=== PATIENT | female | born 1950 | race Caucasian/White ===

== ENCOUNTER 2018-10-06 07:15 | Observation (INO) | payer MEDICARE, BC ==
[2018-10-06 07:43] LABS: #Eosinphils 0.2 thou/uL (0.0-0.7); #Lymphocytes 0.8 thou/uL (1.20-3.40); #Monocytes 0.6 thou/uL (0.11-0.59); %Basophils 0.2 % (0.0-1.0); %Eosinophils 2.6 % (0.0-10.0); %Lymphocytes 9.6 % (21.0-51.0); %Monocytes 7.3 % (0.0-10.0); %Neutrophils 80.3 % (42.0-75.0); Hemoglobin 8.5 g/dL (12.0-16.0); Mean Corpuscular HGB CONC 33.5 g/dL (32.0-36.0); Mean Corpuscular Hemoglobin 31.8 pg (27.0-31.0); Mean Platelet Volume 7.7 fL (7.4-10.4); Platelet Count 168 thou/uL (130-400); RBC Distribution Width 11.7 % (11.5-14.5); Red Blood Cell (RBC) Count 2.66 mill/uL (4.20-5.40); White Blood Cell (WBC) Count 8.7 thou/uL (4.8-10.8)
[2018-10-06 08:02] LABS: ALT (SGPT) 20 U/L (8-55); AST (SGOT) 29 U/L (5-34); Albumin 3.3 g/dL (3.4-4.8); Alkaline Phosphatase 77 U/L (40-150); Anion Gap 11 mmol/L (10-20); BUN (Urea Nitrogen) 15 mg/dL (9.8-20.1); Bilirubin, Total 0.7 mg/dL (0.2-1.2); Calc. Creatinine Clearance 0 mL/min (70-130); Calcium 9.2 mg/dL (7.8-10.44); Carbon Dioxide 26 mmol/L (23-31); Chloride 103 mmol/L (98-107); Estimated GFR-MDRD 56; Globulin 2.5 g/dL (2.4-3.5); Glucose 117 mg/dL (80-115); Potassium 4.1 mmol/L (3.5-5.1); Protein, Total 5.8 g/dL (6.0-8.3); Sodium 136 mmol/L (136-145)
--- NOTE | 2018-10-06 08:14 | RAD ---
PORTABLE CHEST: HISTORY: Mental status change. FINDINGS: Lungs are clear. Heart and mediastinum appear normal. Vasculature normal. IMPRESSION: No acute abnormality. POS: OFF
--- NOTE | 2018-10-06 08:41 | CT ---
CT HEAD WITHOUT CONTRAST: Multiple axial tomograms are obtained through the head without IV enhancement. INDICATION: Mental status change. COMPARISON: No comparison. FINDINGS: Mild cortical volume loss. Moderate chronic ischemic white matter change. No hemorrhage or mass. N o evidence of acute cortical infarct. Deep lacunar infarcts may not be apparent due to the chronic i schemic white matter change. IMPRESSION: There are chronic changes as described. No acute process identified. Consider MRI to further evalua te. POS: OFF
[2018-10-06 08:46] LABS: Bilirubin Small (Negative); Blood, Urine Negative (Negative); Clarity CLOUDY (Clear); Glucose, Urine (Dipstick) Negative (Negative); Leukocyte Small (Negative); Nitrite Negative (Negative); Protein, Urine (Dipstick) Negative (Neg-Trace); Specific Gravity, Urine 1.026 (1.002-1.036); pH, Urine 5.5 (5.0-9.0)
[2018-10-06 08:48] LABS: Bacteria/HPF None Seen HPF (None Seen); RBC/HPF 0-3 HPF (0-3)
[2018-10-06 09:00] LABS: Pathc Cast-AUWi Flag 19.58 (0-2.49); Yeast-AUWi Flag 29.7 (0-25.0)
[2018-10-06 09:11] LABS: Yeast-All Forms Rare HPF (None Seen)
[2018-10-06 09:12] LABS: Hyaline Casts/LPF 7-10 HYALINE CAST LPF (0-3 Hyaline); Other Casts/LPF None Seen LPF (0-3 Hyaline)
[2018-10-06] MEDS ORDERED: traMADol HCl 50 MG TAB PO PRN (10:03)
[2018-10-06] MEDS ORDERED: Lorazepam 2 MG/ML VIAL ONE (10:18)
[2018-10-06 11:55] VITALS: BMI 27.3
[2018-10-06] MEDS ORDERED: ALPRAZolam 0.25 MG TAB PO PRN (15:04)
[2018-10-06] MEDS ORDERED: Lorazepam 2 MG/ML VIAL SLOW IVP PRN (15:05)
--- NOTE | 2018-10-06 15:35 | HP ---
CHIEF COMPLAINT: Altered mental status. HISTORY OF PRESENT ILLNESS: This patient is a 68-year-old female, who is postop day 4 from total right knee replacement in [facility] by Dr. Dc. The patient's reports that she was having some mild difficulty with word finding and such prior to her knee surgery, but generally was quite functional. Subsequent to the knee surgery, she has had more confusion and some visual hallucinations, constantly picking at things and seeing bugs and alligators and the people who are not there and frequently talking to them. He reports that they told her it was likely a complication of the anesthesia initially. In the postop day 2, they actually gave her something at night to make her sleep, but she did not sleep the night of the surgery. He said the following morning, she woke up a little better but not back to baseline. As the day progressed, she continued to revert back to full-blown delirium and hallucinations. He states that at times she will get little bit aggravated with him and he is concerned about her potential rehab. He reports that last night she did not sleep at all that she was up in talking much of the night. She took all the sheets off the bed, put them back on, then took them back off again. He is challenged at home because they are relatively new to the area and they are only the two of them at home. He is having a difficult time caring for her, given her postop knee status and her mental state presently. He is unaware of any fevers or chills. He says she has actually been eating well since the surgery. In reviewing her medication list, it appears that the only new medicine since surgery that she has been taking with regularity are the gabapentin, Plavix, and Xarelto. She was also given tramadol, which she gave her last night for the first time and tizanidine, which she had not given her. PAST MEDICAL HISTORY: Notable for hypertension, hyperlipidemia, hypothyroidism, coronary artery disease, degenerative joint disease, and depression. PAST SURGICAL HISTORY: Cardiac stents x2, history of hysterectomy, and the recent total right knee replacement. FAMILY HISTORY: Reviewed and noncontributory. SOCIAL HISTORY: The patient denies the use of alcohol, drugs, or tobacco. She is . Her is present and assist with the history today. She is full code. He is her surrogate decision maker. They do have directives to physicians completed but not with them at the moment. ALLERGIES: CODEINE AND MACROBID. CURRENT MEDICATIONS: 1. Gabapentin 100 mg 2 tablets t.i.d. 2. Xarelto 10 mg daily. 3. Tizanidine 2 mg t.i.d. p.r.n. 4. Plavix 75 daily. 5. Aspirin 81 mg daily. 6. Atorvastatin 80 mg daily. 7. Levothyroxine 50 mcg daily. 8. Metoprolol 25 mg p.o. b.i.d. PHYSICAL EXAMINATION: VITAL SIGNS: Blood pressure 110/47, pulse 67, respirations 18, and O2 saturation 95% on room air. GENERAL APPEARANCE: Age-appropriate female, in no distress. She is awake, alert, pleasant, and cooperative. She is constantly picking at the things attached to her. She removed the line to her blood pressure cuff and removed the cuff itself. She has removed her pulse ox monitor. She does try to introduce me to her , who is behind her when actually he is sitting in the chair next to her. She also is speaking about things that are nonsensical much of the time. HEENT: PERRL. No OP lesions. NECK: Supple and symmetric. HEART: Regular rate and rhythm without murmurs, gallops, or rubs. LUNGS: Clear to auscultation bilaterally with good chest wall expansion and air exchange. ABDOMEN: Soft, nontender, and nondistended. Positive bowel sounds. No masses. No organomegaly. EXTREMITIES: The right knee has a postop dressing with minimal blood spotting. There is a drain connected to a small suction device. There are compression stockings on both lower extremities. There is no significant cyanosis, clubbing, or edema noted. NEUROLOGIC: The patient is getting up and ambulating with the assistance of her . She is moving all extremities spontaneously and the cognitive impairments noted above seem to be the only major deficits. LABORATORY DATA: White count is 8.7, hemoglobin 8.5, and platelets 168. Sodium 136, potassium 4.1, chloride 103, CO2 is 26, BUN 15, creatinine 0.99, glucose 117, lactic acid 1.1, calcium 9.2, AST 29, ALT 20, and albumin 3.3. Urinalysis; trace ketones, small bilirubin, small leukocyte esterase, 4 to 6 white cells, 0 to 3 red cells, and 11 to 20 squamous epithelial cells. IMAGING DATA: Brain CT shows some slightly advanced white matter changes beyond what would typically be expected for the age. Chest x-ray is clear. IMPRESSION AND PLAN: 1. 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 Other etiologies include adverse reaction to the gabapentin that will be discontinued. We will keep the patient in observation. Consult Neurology for another opinion. 2. Postoperative total right knee replacement. Continue with Xarelto, Plavix, aspirin, and tramadol p.r.n. 3. Hypothyroidism. Continue with her normal levothyroxine dose. 4. History of coronary artery disease. Continue Plavix, aspirin, and metoprolol. 5. Hyperlipidemia. Continue atorvastatin. 6. Disposition. The patient may be a candidate for rehab given her postop status and her mental status. We will consult Case Management to get a rehab screen. Job ID: [id number]
[2018-10-06 17:34] LABS: Folate (Folic Acid) 11.9 ng/mL (7.0-31.4)
--- NOTE | 2018-10-06 19:42 | CON ---
DATE OF CONSULTATION: 10/06/2018 CONSULTING PHYSICIAN: Hospitalist Service. IMPRESSION: 1. Acute encephalopathy with prodromal, minimal symptoms of early dementia. 2. Possible cellulitis of the right leg. PLAN: 1. Continue Seroquel 25 mg at night as you have ordered. 2. Further lab work as ordered. 3. Potential need for antibiotics to address the right leg cellulitis. HISTORY OF PRESENT ILLNESS: Ms. Ivy is a 68-year-old white female, who was brought in due to confusion. Her reports that she had surgery on Sunday to have a knee replacement done down in [place]. Postoperatively, she was confused and was held over until . She seemed to be clearer and they decided to take her on home. She did reasonably well until later in the evening, where she became agitated and was having some hallucinations. She slept Sunday night and again being reasonably lucid on Sunday as the day progressed, the situation worsened. He decided to bring her in for evaluation. She had a CT scan of the brain done, which showed some age-related microvascular disease. Her lab work including CBC, routine chemistry, and urine were unremarkable. She did not sleep at all last night. She has had trouble answering questions appropriately such as edwin grandchildren she has. She is without any complaints of any focal weakness, nausea, vomiting, or headache. PAST MEDICAL HISTORY: Otherwise, I believe atrial fibrillation and degenerative joint disease. MEDICATIONS: Medication list was reviewed. She had been on gabapentin prior to admission, but this was discontinued. SOCIAL HISTORY: No tobacco or alcohol use. FAMILY HISTORY: Noncontributory. REVIEW OF SYSTEMS: A 10-system review of systems is otherwise unremarkable. PHYSICAL EXAMINATION: GENERAL: She is a reasonably well-nourished elderly woman, in no acute distress. VITAL SIGNS: Have been stable. She is afebrile. HEENT: Pupils are equal and reactive. Conjunctivae clear. Oropharynx clear. NECK: Supple. No lymphadenopathy. EXTREMITIES: There is a large area of warmth and redness involving the medial right thigh and a freshly healing incision over the right knee. There was no cyanosis distally. No edema was present. NEUROLOGIC: She was awake and cooperative. Her speech was fluent and clear. She could follow commands reasonably well. She had no evidence of dysarthria. There was no facial asymmetry. Strength testing showed good yarder puncher strength bilaterally. There was no asterixis or tremor present. She had good antigravity strength in all four limbs. Sensation was intact to touch. Plantar responses were downgoing. Gait was not tested. SUMMARY: An elderly lady with postoperative delirium that waxes and wanes with sundowning type pattern. I agree with her choice of medication for the evening time and will rule out some other metabolic issues. Job ID: [id number]
[2018-10-06] MEDS: Metoprolol Tartrate 25 MG TAB PO SCH (20:12)
[2018-10-06] MEDS ORDERED: Atorvastatin Calcium 40 MG TAB PO SCH (21:00)
[2018-10-07] MEDS ORDERED: Levothyroxine Sodium 50 MCG TAB PO SCH (06:00)
[2018-10-07] MEDS: Acetaminophen 325 MG TAB PO PRN ×3 (08:13→18:27)
[2018-10-07] MEDS: Metoprolol Tartrate 25 MG TAB PO SCH (08:14)
[2018-10-07] MEDS ORDERED: Clopidogrel Bisulfate 75 MG TAB PO SCH (09:00)
[2018-10-07] MEDS ORDERED: Rivaroxaban 10 MG TAB PO SCH (09:00)
[2018-10-07] MEDS ORDERED: Aspirin 81 mg Enteric Coated Tablet PO SCH (09:00)
[2018-10-07] MEDS ORDERED: Chloraseptic Spray 180 ml Bottle PO PRN (10:09)
[2018-10-07] MEDS ORDERED: Doxycycline 100 MG CAP PO SCH ×2 (10:15→21:00)
--- NOTE | 2018-10-07 11:46 | ULT ---
ULTRASOUND DOPPLER DUPLEX VENOUS BILATERAL LOWER EXTREMITIES: DATE: 10/07/2018 HISTORY: 68-year-old female with bilateral lower extremity edema and pain TECHNIQUE: Grayscale, color-flow, and spectral analysis, of major veins of bilateral lower extremities. FINDINGS: There is demonstration of blood flow with normal compressibility, of the bilateral common femoral, pr ofunda femoral, greater saphenous, femoral, and posterior tibial, veins. The right popliteal vein is not visible because of obscuration by overlying bandages. The left popliteal vein is normal. IMPRESSION: 1. Right popliteal vein not visualized due to overlying bandages. 2. Otherwise Negative. No deep venous thrombosis identified in the rest of the bilateral lower extrem ities.
[2018-10-07] MEDS ORDERED: Ibuprofen 200 MG TAB PO SCH (14:30)
--- NOTE | 2018-10-07 16:12 | PDOC.PN ---
- Subjective Encounter Start Date: 10/07/18 Encounter Start Time: 16:10 Subjective: feels much better.care discussed w family at bedside -: they report that her mentation is much clear today - Objective Resuscitation Status - Order Detail: 10/06/18 09:56 Resuscitation Status Routine Resuscitation Status: FULL: Full Resuscitation MAR Reviewed: Yes Vital Signs & Weight: Vital Signs (12 hours) Temp Pulse Resp BP Pulse Ox 10/07/18 12:39 98.4 F 72 14 126/75 99 10/07/18 08:23 98.5 F 72 18 136/71 99 10/07/18 04:24 97.8 F 62 18 118/72 93 L Weight Weight 149 lb 14.629 oz I&O: 10/06/18 10/07/18 10/08/18 06:59 06:59 06:59 Intake Total 640 Output Total 1650 Balance -1010 Result Diagrams: 10/06/18 07:34 10/06/18 07:34 Additional Labs: Microbiology 10/06/18 07:49 Venous blood - Right Arm Blood Culture - Preliminary Specimen has been received and culture in progress. No Growth to date. 10/06/18 07:49 Venous blood - Left Arm Blood Culture - Preliminary Specimen has been received and culture in progress. No Growth to date. Laboratory Tests 10/06/18 10/06/18 10/06/18 07:42 15:48 15:48 Lactic Acid 1.1 Ammonia Vitamin B12 658 Folate 11.90 Free T4 Cortisol 8.00 10/06/18 10/06/18 15:48 15:48 Lactic Acid Ammonia 22 Vitamin B12 Folate Free T4 1.03 Cortisol Phys Exam - Physical Examination Constitutional: NAD mild confusion noted HEENT: PERRLA, moist MMs, sclera anicteric, oral pharynx no lesions Neck: no nodes, no JVD, supple, full ROM Respiratory: no wheezing, no rales, no rhonchi, clear to auscultation bilateral Cardiovascular: RRR, no significant murmur, no rub Gastrointestinal: soft, non-tender, no distention, positive bowel sounds Musculoskeletal: no edema, pulses present Neurological: non-focal, normal sensation, moves all 4 limbs Psychiatric: normal affect, A&O x 3 Skin: no rash Dx/Plan (1) Metabolic encephalopathy Code(s): G93.41 - METABOLIC ENCEPHALOPATHY Status: Acute Comment: improving.likley due to narcotics and muscle relaxants with cellulitis (2) Cellulitis of right leg Code(s): L03.115 - CELLULITIS OF RIGHT LOWER LIMB Status: Acute Comment: start PO ABx. (3) S/P total knee replacement Code(s): Z96.659 - PRESENCE OF UNSPECIFIED ARTIFICIAL KNEE JOINT Status: Acute Qualifiers: Laterality: right Qualified Code(s): Z96.651 - Presence of right artificial knee joint (4) CAD (coronary artery disease) Code(s): I25.10 - ATHSCL HEART DISEASE OF [place] CORONARY ARTERY W/O ANG PCTRS Status: Chronic Comment: stable.cont ASA,statin.Plavix on hold for 7 days as pt on Xarelto for DVT prophylaxis post-op (5) HTN (hypertension) Code(s): I10 - ESSENTIAL (PRIMARY) HYPERTENSION Status: Chronic Comment: stable. cont amlodipine (6) HLD (hyperlipidemia) Code(s): E78.5 - HYPERLIPIDEMIA, UNSPECIFIED Status: Chronic Comment: cont statin (7) Hypothyroid Code(s): E03.9 - HYPOTHYROIDISM, UNSPECIFIED Status: Chronic - Plan plan discussed w/ family, DVT proph w/SCDs cont xarelto for 7 days for DVT prophylaxis -: Start PO doxycycline for possible R leg cellulitis -: Doppler negative for DVT.low risk w OAC -: Rehab eval.Ok to DC if accpeted today -: am labs if still in house tomorrow.all WNL so far * . Review of Systems - Review of Systems Constitutional: weakness, malaise. negative: fever, chills, sweats, other Respiratory: negative: Cough, Dry, Shortness of Breath, Hemoptysis, SOB with Excertion, Pleuritic Pain, Sputum, Wheezing Cardiovascular: negative: chest pain, palpitations, orthopnea, paroxysmal nocturnal dyspnea, edema, light headedness, other Gastrointestinal: negative: Nausea, Vomiting, Abdominal Pain, Diarrhea, Constipation, Melena, Hematochezia, Other Genitourinary: negative: Dysuria, Frequency, Incontinence, Hematuria, Retention , Other Musculoskeletal: negative: Neck Pain, Shoulder Pain, Arm Pain, Back Pain, Hand Pain, Leg Pain, Foot Pain, Other - Medications/Allergies Allergies/Adverse Reactions: Allergies Allergy/AdvReac Type Severity Reaction Status Date / Time codeine Allergy Verified 10/06/18 10:37 nitrofurantoin Allergy Verified 10/06/18 10:37 [From Macrobid] Medications: Current Medications Acetaminophen (Tylenol) 650 mg PO Q4H PRN PRN Reason: Headache/Fever/Mild Pain (1-3) Last Admin: 10/07/18 12:06 Dose: 650 mg Alprazolam (Xanax) 0.25 mg PO TIDPRN PRN PRN Reason: Anxiety Last Admin: 10/06/18 15:12 Dose: 0.25 mg Aspirin (Ecotrin) 81 mg PO DAILY [facility] Last Admin: 10/07/18 08:14 Dose: 81 mg Atorvastatin Calcium (Lipitor) 80 mg PO HS [facility] Last Admin: 10/06/18 20:12 Dose: 80 mg Clopidogrel Bisulfate (Plavix) 75 mg PO DAILY [facility] Last Admin: 10/07/18 08:13 Dose: 75 mg Doxycycline Hyclate (Vibramycin) 100 mg PO BID [facility] Ibuprofen (Motrin) 200 mg PO NOW [facility] Stop: 10/07/18 16:30 Levothyroxine Sodium (Synthroid) 50 mcg PO 0600 [facility] Last Admin: 10/07/18 06:23 Dose: 50 mcg Lorazepam (Ativan) 0.5 mg SLOW IVP Q4H PRN PRN Reason: Anxiety/Agitation Last Admin: 10/06/18 17:12 Dose: 0.5 mg Metoprolol Tartrate (Lopressor) 25 mg PO BID [facility] Last Admin: 10/07/18 08:14 Dose: 25 mg Phenol (Chloraseptic [place] 180 Ml Bot) 0 ml PO BIDPRN PRN PRN Reason: Sore Throat Last Admin: 10/07/18 13:21 Dose: 1 spr Quetiapine Fumarate (Seroquel) 25 mg PO HS [facility] Last Admin: 10/06/18 20:12 Dose: 25 mg Rivaroxaban (Xarelto) 10 mg PO DAILY [facility] Last Admin: 10/07/18 08:13 Dose: 10 mg Tramadol HCl (Ultram) 50 mg PO Q6H PRN PRN Reason: Moderate to Severe Pain (6-10)
[2018-10-07 16:54] VITALS: BP 117/64; TEMP 98.2
--- NOTE | 2018-10-09 04:56 | DIS ---
DATE OF ADMISSION: 10/06/2018 DATE OF DISCHARGE: 10/07/2018 CONDITION: At the time of discharge, stable and improved. DISCHARGE DISPOSITION: Inpatient rehab. PRIMARY CARE PHYSICIAN: Chester Collins MD. DISCHARGE DIAGNOSES: 1. Acute metabolic encephalopathy, improved. 2. Right leg cellulitis. 3. Recent right total knee replacement. 4. Coronary artery disease. 5. Hypertension. 6. Dyslipidemia. 7. Hypothyroidism. DISCHARGE MEDICATIONS: Doxycycline 100 mg p.o. b.i.d. for 7 days, Florastor 250 mg p.o. daily for 10 days. Resume home medications. No changes were made. Please see full list dictated by Dr. Shin Felix in his H and P dated 10/06/2018. Please note that the patient is on Xarelto 10 mg daily for a total duration of 7 days postop. She will resume her Plavix 75 mg daily after she is done with her Xarelto. Plavix and Xarelto should not be given together. PROCEDURES DONE IN THE HOSPITAL: 1. CT scan of the brain upon presentation, which did not show any acute changes. 2. Chest x-ray, which did not have any evidence of pneumonia. 3. Lower extremity Doppler ultrasound, which is negative for any DVT, but right-sided popliteal vein was not visualized properly due to overlying bandages. HISTORY OF PRESENTING ILLNESS: Ms. Ivy is a 68-year-old female, with past medical history of coronary artery disease, hypertension, dyslipidemia, who recently underwent right total knee replacement at [facility] by Dr. Mendosa. She was postop day #4 on 10/06/2018. She was brought into the hospital by her for complaints of confusion and some visual hallucination, which was worsening. She was discharged home from the hospital. He has given her 1 dose of tizanidine and 1 dose of tramadol. She was also put on Xarelto instead of Plavix for postop DVT prophylaxis for a total of 7 days. Upon presentation, she was hemodynamically stable and her metabolic panel was unremarkable. She was admitted for observation status. CT scan of the brain done in the emergency room was negative. Her gabapentin was held and Neurology was consulted. Please see admission history and physical dictated by Dr. Shin Felix on 10/06/2018. HOSPITAL COURSE: The patient had gradual improvement in her mentation and was awake, alert, and oriented at least x2 with intermittent periods of slow mentation. Neurology saw the patient and they thought that she might have right lower leg cellulitis. Upon my evaluation, the patient had a small patch of right anterior machuca erythema with some warmth. She does have a bruise in the right thigh, and some redness surrounding the incision, but the incision itself was dry and without any discharge. She was started on oral doxycycline for possible right leg cellulitis. She was continued on her Seroquel at night as per Neurology recommendations. Other than that all of her workup was rather unremarkable. She was evaluated for rehab and was approved and will be discharged. Her blood cultures have been negative till the date of discharge. Discharge plan was discussed with the patient, her , and her daughter and they verbalized understanding. Job ID: [id number]
== END 2018-10-07 19:45 ==
LOC: ERS 07:15 → T4-A 09:30
PROVIDERS: ADMIT Internal Medicine; ATTEND Internal Medicine
DX: G93.41 Metabolic encephalopathy (principal); L03.115 Cellulitis of right lower limb; I25.10 Atherosclerotic heart disease of native coronary artery without angina pectoris; I10 Essential (primary) hypertension; E78.5 Hyperlipidemia, unspecified; E03.9 Hypothyroidism, unspecified; F32.9 Major depressive disorder, single episode, unspecified; Z79.01 Long term (current) use of anticoagulants; Z79.02 Long term (current) use of antithrombotics/antiplatelets; Z79.82 Long term (current) use of aspirin; Z79.899 Other long term (current) drug therapy; Z88.1 Allergy status to other antibiotic agents; Z88.5 Allergy status to narcotic agent; Z95.5 Presence of coronary angioplasty implant and graft; Z96.651 Presence of right artificial knee joint
CPT/HCPCS: 51701; 70450; 71045; 80053; 82140; 82533; 82607; 82746; 83605; 84439; 85025; 87040; 93970; 96361; 96374; 96376; 97116; 97139 ×2; 99285; G0378 ×2; 36415; 81003; 81015; A4353; J2060

== ENCOUNTER 2019-04-01 13:16 | Observation (INO) | payer MEDICARE, BC ==
[2019-04-01 15:13] LABS: Troponin I Less than 0.010 ng/mL (< 0.028)
[2019-04-01] MEDS ORDERED: Acetaminophen 325 MG TAB PO PRN (16:40)
[2019-04-01] MEDS ORDERED: Ondansetron ODT 4 MG TAB SL PRN (16:40)
[2019-04-01] MEDS ORDERED: Ondansetron PF 4 MG/2 ML Vial IVP PRN (16:40)
[2019-04-01 17:32] VITALS: BMI 23.1
[2019-04-01] MEDS ORDERED: Nitroglycerin 0.4 MG TAB (25 Tab Bottle) PO PRN (17:32)
[2019-04-01 18:10] LABS: Troponin I Less than 0.010 ng/mL (< 0.028)
--- NOTE | 2019-04-02 08:03 | HP ---
PRIMARY CARE PHYSICIAN: Chester Collins MD OCCUPATIONAL THERAPIST'S ASSISTANT: Alma Walton MD CHIEF COMPLAINT: Chest pain, transferred from [facility]. HISTORY OF PRESENT ILLNESS: This is a 69-year-old female with past medical history of coronary artery disease, status post stenting x2 in February 2012, compliant on aspirin 81 mg and Plavix 75 mg and CAD prudent medications, hypertension, hypothyroidism, dyslipidemia, who presented to [facility] after awakening at 8 a.m. with complaints of chest pain and indigestion related symptoms. The patient reports eating tacos the night prior and awakening at 8 a.m. with constant belching as well as pressure-like discomfort in the middle of her chest that lasted for 1 hour duration, that was not relieved with 2 antacid tablets and felt similar to her prior MD from 7 years prior. She denies any associated complaints of dyspnea, neck pain, jaw pain, back pain, shoulder pain, arm pain, numbness, weakness, tingling, or diaphoresis. In the ER, she was noted to have a blood pressure of 200 systolic. Initial EKG and troponin did not reveal any ischemic or infarction changes. The patient was administered multiple aspirin tablets and nitroglycerin topical ointment, and transferred to [facility] ER for further evaluation. Repeat blood pressures have improved to 150s to 170s systolic. The patient was admitted for further observation. At bedside, her current chest discomfort is nil and have rated 0/10 in severity. The patient is an extremely poor historian despite multiple attempts to obtain any history from her. She is not clear on when her last left heart cardiac catheterization or cardiac risk stratification was. She has an upcoming appointment with coat examiner in the next couple of weeks. She is compliant with all home medications including antacid tablets. She denies any lower extremity edema or dyspnea. She reiterates currently that she feels well. PAST MEDICAL HISTORY: Coronary artery disease, status post stenting x2 in February 2012 to mid RCA and distal RCA, compliant on dual antiplatelet therapy with a repeat left heart catheterization in 2013 in [place], [place]. The patient also has a history of hypertension, dyslipidemia, hypothyroidism, ureteral stricture, and depression. PAST SURGICAL HISTORY: Coronary stenting x2 in 2011, repeat heart catheterization in 2013, right knee replacement, shoulder surgeries, knee surgeries, left wrist surgery, bilateral cataract surgery, hysterectomy. SOCIAL HISTORY: The patient admits to prior nicotine dependence and subsequently vaping, quitting in July 2018. She admits to social alcohol intake. ALLERGIES: LISTED TO CODEINE AND NITROFURANTOIN. REVIEW OF SYSTEMS: Pertinent positives are noted and as per HPI. Remainder of review of systems is negative. HOME MEDICATIONS: Will be reviewed as per admission medication reconciliation. FAMILY HISTORY: The patient notes that her father from cancer. She denies any premature family history of CAD. PHYSICAL EXAMINATION: VITAL SIGNS: Blood pressure ranges from 159/60 to 171/70, pulse 56, respirations 16, T-max 98.2, oxygen saturation 98%. GENERAL APPEARANCE: This is an elderly thin female, who is awake, alert, oriented, lucid, not in any distress. HEENT: Eyes, pupils are equally round and reactive. Extraocular muscles are intact. No scleral icterus or conjunctival pallor. Normocephalic and atraumatic. No facial asymmetry. Mucous membranes are moist. CARDIOVASCULAR SYSTEM: S1, S2, regular rate and rhythm. No harsh murmurs. No appreciable chest wall tenderness. LUNGS: Bilateral equal air entry, clear to auscultation. Symmetrical chest expansion. No wheezing or rales. ABDOMEN: Soft, nontender, and nondistended. No peritoneal signs appreciated. SKIN: Warm to touch without rashes or abrasion. LABORATORY VALUES: CBC reveals a white blood cell count of 7.0, H and H 13.4/ 43.8, platelets 205. Chemistries; CMP reviewed and unremarkable. Troponin I negative x1. Urinalysis reveals trace blood, positive nitrites, trace leukocyte esterases, 4 to 6 squamous epithelial cells, 3+ bacteria. IMAGING REVIEW: Chest x-ray in ER reveals no evidence of acute cardiopulmonary disease. A 12-lead EKG in the ER personally reviewed reveals sinus bradycardia. No ST elevation or depression noted. ASSESSMENT AND PLAN: 1. Angina, rule out acute coronary syndrome. The patient will be admitted as observation status and will be placed on telemetry monitoring. We will obtain serial cardiac biomarkers to exclude acute coronary syndrome. The patient's coat examiner will be consulted for further coronary artery disease risk factor stratification. We will continue the patient's home dual antiplatelet therapy and give first dose of Plavix now. We will maintain n.p.o. after midnight. We will obtain transthoracic echocardiogram. We will monitor blood pressure for normotension. We will start oral proton pump inhibitor therapy. The patient denies any current anginal complaints. She is unaware of any recent heart catheterization or stress testing. 2. Hypertensive urgency. We will monitor blood pressures of normotension. Cardiology consulted to monitor blood pressures and optimize the medications. The patient received multiple aspirin and nitroglycerin ointment with improvement in overall symptoms. 3. Coronary artery disease with prior stenting x2 in 2011. The patient notes repeat heart catheterization in 2013 in [place]. She is unaware and cannot remember if she has any repeat catheterizations at that time. 4. Dyslipidemia. Continue statin. 5. Hypothyroidism. Continue levothyroxine. 6. Deep venous thrombosis prophylaxis: Sequential compression devices and Lovenox. 7. Disposition: The patient will be admitted to observation status, and await further cardiac risk stratification with Cardiology. Job ID: [id number] MTDD
[2019-04-02] MEDS ORDERED: Clopidogrel Bisulfate 75 MG TAB PO SCH ×2 (09:00→10:45)
[2019-04-02] MEDS ORDERED: Aspirin 81 mg Enteric Coated Tablet ONE (10:00)
[2019-04-02] MEDS: Aspirin 81 mg Enteric Coated Tablet PO SCH (10:03)
[2019-04-02] MEDS: Clopidogrel Bisulfate 75 MG TAB PO SCH (10:03)
[2019-04-02] MEDS ORDERED: Lisinopril 20 MG TAB PO SCH (10:30)
[2019-04-02] MEDS ORDERED: Aspirin 81 mg Enteric Coated Tablet PO SCH (10:45)
[2019-04-02] MEDS ORDERED: Communication Order-Pharmacy FS SCH (13:30)
--- NOTE | 2019-04-02 14:28 | CT ---
CT ABDOMEN AND PELVIS WITHOUT AND WITH CONTRAST: 04/02/19 HISTORY: Left sided headaches for several months. COMPARISON: 10/06/18 TECHNIQUE: Multiple contiguous axial images obtained of the CT of the brain without and with contrast. FINDINGS: There are scattered hypodensities in the subcortical and periventricular white matter likely secondar y to small vessel ischemic disease. No abnormal intracranial enhancement is seen. There is no evidenc e of hydrocephalus, intracranial hemorrhage, or extra-axial fluid collections. The calvarium and overlying soft tissues are unremarkable. The visualized paranasal sinuses and mast oid air cells are well aerated. IMPRESSION: No evidence of acute intracranial abnormality. POS: TPC
--- NOTE | 2019-04-02 14:47 | CON ---
DATE OF CONSULTATION: 04/02/2019 REASON FOR CONSULTATION: Chest pressure. HISTORY OF PRESENT ILLNESS: Ms. Ivy is a pleasant 69-year-old woman. The patient had episode yesterday of upper epigastric discomfort and tightness in the lower chest area and then tightness all the way across her chest. She said this felt similar to what she had before. She was diagnosed with coronary artery disease and had 2 stents placed in her heart arteries in 2011. The patient had the onset of this in the mid morning yesterday. The patient is currently doing well. PAST MEDICAL HISTORY: She had a history of two stents placed, I believe, in the right coronary artery in 2011. She said this symptom she had yesterday was very similar to that symptom. The patient's states that she is having trouble remembering some words. She seems to be talking slower and then becoming much more forgetful. He is concerned that she may be developing some dementia. She also been having left-sided headaches for few months. PAST SURGICAL HISTORY: She had history of knee replacement, history of stent implantation. REVIEW OF SYSTEMS: CONSTITUTIONAL: No significant weight gain or loss. VISION: No changes. HEARING: No changes. PULMONARY: No cough or wheezing. GASTROINTESTINAL: No nausea, vomiting, or diarrhea. SKIN: No rashes. NEUROLOGIC: No unilateral weakness or numbness. PSYCHIATRIC: No unusual depression or anxiety. MEDICATIONS: She was on; 1. Aspirin. 2. Plavix. 3. Atorvastatin. PHYSICAL EXAMINATION: GENERAL: This is a pleasant 69-year-old woman in no distress. VITAL SIGNS: Blood pressure is 160/70, pulse 60 and it is regular. HEENT: Eyes, sclerae and nonicteric. Mouth, mucous membranes moist. NECK: Supple. No lymphadenopathy. LUNGS: Clear. No wheezing, rales, or rhonchi. CARDIAC: Normal S1, normal S2. There is no murmur, rub, or gallop. ABDOMEN: Soft and nontender. EXTREMITIES: No clubbing, cyanosis, or edema. Good peripheral pulses. PERTINENT LABORATORY DATA: Troponins all less than 0.010. EKG, no ischemia. ASSESSMENT: 1. Chest pressure at rest, suspicious for angina. 2. History of coronary artery disease. 3. Very little history of esophageal reflux by her symptoms. 4. History of hypercholesterolemia, on medicines, being treated. Discussed options that cardiac catheterization will be the most definitive test to see if she has coronary obstructions. Discussed risk of stroke, heart attack, iodine allergy, interference of blood supply to leg or kidney, stent thrombosis, stent restenosis. She understands and wished to proceed. 5. Also, she is having headaches and some concerns for dementia. We will go ahead and do CAT scan of her head today. Job ID: [id number]
[2019-04-02] MEDS: Metoprolol Tartrate 25 MG TAB PO SCH (20:48)
[2019-04-03] MEDS: Metoprolol Tartrate 25 MG TAB PO SCH ×2 (05:07→05:20)
[2019-04-03] MEDS: Clopidogrel Bisulfate 75 MG TAB PO SCH (05:07)
[2019-04-03] MEDS: Aspirin 81 mg Enteric Coated Tablet PO SCH (05:07)
[2019-04-03] MEDS ORDERED: Levothyroxine Sodium 50 MCG TAB PO SCH (06:00)
--- NOTE | 2019-04-03 06:05 | PDOC.HOSPP ---
- Subjective Encounter Date: 04/02/19 Encounter Time: 11:00 Subjective: pt up in bed no chest pain. she is npo until seen by cardiology. - Objective Vital Signs & Weight: Vital Signs (12 hours) Temp Pulse Resp BP BP Pulse Ox 04/03/19 05:07 148/67 H 04/03/19 05:06 97.6 F 58 L 16 114/57 L 96 04/02/19 20:05 97.6 F 78 15 145/64 H 97 Weight Weight 146 lb 12.8 oz I&O: 04/01/19 04/02/19 04/03/19 06:59 06:59 06:59 Intake Total 680 1720 Balance 680 1720 Hospitalist ROS - Review of Systems Cardiovascular: denies: chest pain, palpitations, orthopnea, paroxysmal noc. dyspnea, edema, light headedness, other Gastrointestinal: denies: nausea, vomiting, abdominal pain, diarrhea, constipation, melena, hematochezia, other Genitourinary: denies: dysuria, frequency, incontinence, hematuria, retention, other - Medication Medications: Active Medications Generic Name Dose Route Start Last Admin Trade Name Freq PRN Reason Stop Dose Admin Aspirin 81 mg 04/03/19 09:00 04/03/19 05:07 Ecotrin PO 81 mg DAILY KHANH Administration Atorvastatin Calcium 80 mg 04/03/19 09:00 04/03/19 05:07 Lipitor PO 80 mg DAILY KHANH Administration Clopidogrel Bisulfate 75 mg 04/03/19 09:00 04/03/19 05:07 Plavix PO 75 mg DAILY KHANH Administration Sodium Chloride 500 mls @ 50 mls/hr 04/03/19 11:28 04/02/19 12:36 Normal Saline 0.9% IVPB 04/03/19 21:27 500 mls 1128 KHANH Administration Levothyroxine Sodium 50 mcg 04/03/19 06:00 04/03/19 05:07 Synthroid PO 50 mcg 0600 KHANH Administration Lisinopril 20 mg 04/03/19 09:00 04/03/19 05:07 Zestril PO 20 mg DAILY KHANH Administration Metoprolol Tartrate 25 mg 04/02/19 21:00 04/03/19 05:20 Lopressor PO Not Given BID KHANH Pantoprazole Sodium 40 mg 04/02/19 09:00 11/14/19 05:07 Protonix PO 40 mg DAILY KHANH Administration - Exam Heart: negative: RRR, no murmur, no gallops, no rubs, normal peripheral pulses, irregular, diminshed peripheral pulses, murmur present, II/IV, III/IV Respiratory: negative: CTAB, no wheezes, no rales, no ronchi, normal chest expansion, no tachypnea, normal percussion, rales, rhonchi, tachypneic, wheezes Hosp A/P (1) Chest pain Code(s): R07.9 - CHEST PAIN, UNSPECIFIED Status: Acute (2) CAD (coronary artery disease) Code(s): I25.10 - ATHSCL HEART DISEASE OF [place] CORONARY ARTERY W/O ANG PCTRS Status: Chronic (3) HLD (hyperlipidemia) Code(s): E78.5 - HYPERLIPIDEMIA, UNSPECIFIED Status: Chronic (4) HTN (hypertension) Code(s): I10 - ESSENTIAL (PRIMARY) HYPERTENSION Status: Chronic - Plan trops negative. awaiting cardiology consultation. will start her on iv fluids and additional bp med.
[2019-04-03] MEDS ORDERED: Sodium Chloride 0.9% 500 ML IV SCH (06:15)
[2019-04-03] MEDS ORDERED: Atorvastatin Calcium 40 MG TAB PO SCH (09:00)
[2019-04-03] MEDS ORDERED: Lisinopril 20 MG TAB PO SCH (09:00)
[2019-04-03] MEDS ORDERED: Iopamidol 370 76% 100 ML VIAL ONE (10:19)
[2019-04-03] MEDS ORDERED: Sodium Chloride 0.9% 500 ML IVPB SCH (11:28)
[2019-04-03] MEDS ORDERED: Heparin (Artline) 1,000 ML ONE (11:47)
[2019-04-03] MEDS ORDERED: Midazolam HCl 2 mg/2 ml Vial ONE (11:48)
[2019-04-03] MEDS ORDERED: Lidocaine 1% (PF) 30 ML VIAL ONE (11:48)
[2019-04-03] MEDS ORDERED: Fentanyl 100 MCG/2 ML VIAL ONE (11:48)
[2019-04-03] MEDS ORDERED: Nitroglycerin 0.4 MG TAB (25 Tab Bottle) SL PRN (13:05)
[2019-04-03] MEDS ORDERED: Sodium Chloride 0.9% 200 ML IV PRN (13:05)
[2019-04-03 15:50] VITALS: BP 133/64; TEMP 97.8
--- NOTE | 2019-04-04 18:58 | DIS ---
DATE OF ADMISSION: 04/01/2019 DATE OF DISCHARGE: 04/03/2019 DISCHARGE DIAGNOSES: 1. Chest pain. 2. Hypertension. 3. History of coronary artery disease. 4. Hyperlipidemia. HOSPITAL COURSE: The patient is a very pleasant 69-year-old female, who initially presented to the hospital with complaints of chest pain. She initially described her pain as chest pressure. Given history of CAD, she was seen by Cardiology and underwent a cardiac cath. Her troponins x3 were negative. Her EF was noted on the cardiac cath of 60%. No obstructive coronary artery disease was noted. RCA stent was widely patent with no restenoses, 30% plaque in the proximal of the stent. Her LAD and the left main with some calcium, but no stenosis. The circumflex was normal. Recommended to continue medical therapy. She also had a CT brain since the patient's family mentioned that she has been kind of forgetting things. CT brain was negative. I did recommend to the patient and the patient's family to follow up with her primary for a mini-mental test. Echocardiogram was done, which indicated an EF of 55% to 60%, otherwise it was normal, had some diastolic dysfunction. PHYSICAL EXAMINATION: VITAL SIGNS: On discharge, temperature 97.8, pulse 65, respirations 14, 97% on room , blood pressure 133/64. GENERAL: She is awake, alert, and oriented x3, does not appear in any distress. CV: S1 and S2 present. No murmurs, rubs, or gallops. MEDICATIONS: 1. Atorvastatin 80 mg daily. 2. Plavix 75 mg daily. 3. Levothyroxine 50 mcg daily. 4. Metoprolol 25 mg b.i.d. 5. Aspirin 81 mg daily. 6. Multivitamin one p.o. daily. Again, she will be discharged home. Follow up with primary and Cardiology as needed. Job ID: [id number]
== END 2019-04-03 16:48 | disposition home or self-care (01) ==
LOC: ERS 13:16 → 2SW 16:48
PROVIDERS: ADMIT Hospitalist; ATTEND Hospitalist
PROC: 4A023N7 Measurement of Cardiac Sampling and Pressure, Left Heart, Percutaneous Approach (ICD-10-PCS; principal; 2019-04-01)
PROC: B2111ZZ Fluoroscopy of Multiple Coronary Arteries using Low Osmolar Contrast (ICD-10-PCS; 2019-04-01)
DX: R07.89 Other chest pain (principal); I25.10 Atherosclerotic heart disease of native coronary artery without angina pectoris; I16.0 Hypertensive urgency; I10 Essential (primary) hypertension; E03.9 Hypothyroidism, unspecified; E78.5 Hyperlipidemia, unspecified; I25.2 Old myocardial infarction; Z87.891 Personal history of nicotine dependence; Z79.02 Long term (current) use of antithrombotics/antiplatelets; Z79.82 Long term (current) use of aspirin; Z79.899 Other long term (current) drug therapy; Z88.1 Allergy status to other antibiotic agents; Z88.5 Allergy status to narcotic agent; Z95.5 Presence of coronary angioplasty implant and graft
CPT/HCPCS: 70470; 76942; 84484; 93005; 93306; 93458; 99285; C1769; G0378 ×4; 36415; 99152; 99153; J1644; J2001; J2250; J3010; J7050; Q9967

== ENCOUNTER 2021-05-27 14:04 | Outpatient (CLI) | payer MEDICARE | END 2021-05-27 14:05 | disposition home or self-care (01) | LOC: EEG 14:04 | PROVIDERS: ATTEND Psychiatry & Neurology Neurology | DX: G30.1 Alzheimer's disease with late onset (principal); F02.80 Dementia in other diseases classified elsewhere, unspecified severity, without behavioral disturbance, psychotic disturbance, mood disturbance, and anxiety | CPT/HCPCS: 95816; 95957 ==